=== PATIENT | female | born 1980 | race Caucasian/White ===

== ENCOUNTER 2017-07-06 15:28 | Emergency (ER) | payer OTHER ==
[~2017-07-06] VITALS: Ht 154.9 cm; Wt 46.7 kg
[~2017-07-06 15:28] MED LIST: MULT1TAB10 PO; VITA100T60 PO
[2017-07-06 16:30] VITALS: BP 142/89
--- NOTE | 2017-07-08 05:43 | ECGEPIP ---
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
== END 2017-07-06 17:22 | disposition left against medical advice (07) ==
LOC: M ED 15:28 → EDBD 15:28 → M ED 17:22
DX: R55 Syncope and collapse (principal); Z53.20 Procedure and treatment not carried out because of patient's decision for unspecified reasons

== ENCOUNTER → 2017-10-03 | Outpatient (REF) | payer OTHER ==
[~2017-10-03] MED LIST changes: +BUSP5TA PO; +VENL75CA2 PO
[2017-10-03 12:32] LABS: MEAN CORPUSCULAR HEMOGLOBIN 33.1 pg (27.0-33.0); MEAN CORPUSCULAR HGB CONC 33.9 g/dl (32.0-36.5); MEAN CORPUSCULAR VOLUME 97.7 fl (80.0-96.0); PLATELET COUNT, AUTOMATED 330 10^3/uL (150-450); RED CELL DISTRIBUTION WIDTH 12.8 % (11.5-14.5); WHITE BLOOD COUNT 7.8 10^3/uL (4.0-10.0)
[2017-10-03 12:55] LABS: ALBUMIN 4.1 GM/DL (3.2-5.2); ALBUMIN/GLOBULIN RATIO 1.11 (1.00-1.93); ALKALINE PHOSPHATASE 51 U/L (45-117); ALT/SGPT 16 U/L (12-78); ANION GAP 6 MEQ/L (8-16); AST/SGOT 15 U/L (7-37); BILIRUBIN,TOTAL 0.6 MG/DL (0.2-1.0); BLOOD UREA NITROGEN 8 MG/DL (7-18); CALCIUM LEVEL 9.6 MG/DL (8.5-10.1); CARBON DIOXIDE LEVEL 28 MEQ/L (21-32); CHLORIDE LEVEL 109 MEQ/L (98-107); CREATININE FOR GFR 0.92 MG/DL (0.55-1.02); FREE T4 0.88 NG/DL (0.76-1.46); GLOMERULAR FILTRATION RATE > 60.0 (>60); GLUCOSE, FASTING 105 MG/DL (70-105); SODIUM LEVEL 143 MEQ/L (136-145); TOTAL PROTEIN 7.8 GM/DL (6.4-8.2)
[2017-10-03 13:01] LABS: POTASSIUM SERUM 5.5 MEQ/L (3.5-5.1)
== END ==
LOC: M SFHCADAM 10:17
PROVIDERS: ATTEND Physician Assistant
DX: M94.0 Chondrocostal junction syndrome [Tietze] (principal); R07.89 Other chest pain; F41.9 Anxiety disorder, unspecified

== ENCOUNTER → 2017-10-04 | Outpatient (REF) | payer OTHER | LOC: M SFHCADAM 09:31 | PROVIDERS: ATTEND Physician Assistant | DX: E87.5 Hyperkalemia (principal) ==

== ENCOUNTER 2017-10-08 06:26 | Observation (INO) | payer OTHER ==
[~2017-10-08] VITALS: Ht 154.9 cm; Wt 47.0 kg
[~2017-10-08 06:26] MED LIST changes: -BUSP5TA PO; -VENL75CA2 PO
[2017-10-08] MEDS ORDERED: VENL75CA2 PO (06:43)
[2017-10-08] MEDS ORDERED: BUSP5TA PO (06:43)
[2017-10-08] MEDS ORDERED: NS 1,000 ML IV ONE (07:00)
[2017-10-08] MEDS ORDERED: NALOXONE INJ 2 MG/2 ML SYRINGE (J2310) IV ONE (07:00)
[2017-10-08 07:03] LABS: BASO # 0.1 10^3/uL (0.0-0.2); BASO % 0.5 % (0.0-1.0); EOS # 0.6 10^3/uL (0.0-0.50); EOS % 6.7 % (0.0-3.0); IMMATURE GRANULOCYTE % 0.2 % (0-0); LYMPH # 3.9 10^3/uL (1.5-4.5); LYMPH % 42.3 % (24.0-44.0); MEAN CORPUSCULAR HEMOGLOBIN 32.7 pg (27.0-33.0); MEAN CORPUSCULAR HGB CONC 33.2 g/dl (32.0-36.5); MEAN CORPUSCULAR VOLUME 98.5 fl (80.0-96.0); MONO # 0.7 10^3/uL (0.0-0.8); MONO % 7.9 % (0.0-5.0); NEUTROPHILS # 3.9 10^3/uL (1.8-7.7); NEUTROPHILS % 42.4 % (36.0-66.0); PLATELET COUNT, AUTOMATED 236 10^3/uL (150-450); RED CELL DISTRIBUTION WIDTH 12.4 % (11.5-14.5); WHITE BLOOD COUNT 9.3 10^3/uL (4.0-10.0)
[2017-10-08 07:14] LABS: ALBUMIN 3.5 GM/DL (3.2-5.2); ALBUMIN/GLOBULIN RATIO 1.09 (1.00-1.93); ALKALINE PHOSPHATASE 45 U/L (45-117); ALT/SGPT 19 U/L (12-78); ANION GAP 7 MEQ/L (8-16); AST/SGOT 20 U/L (7-37); BILIRUBIN,DIRECT < 0.1 MG/DL (0.0-0.2); BILIRUBIN,TOTAL 0.2 MG/DL (0.2-1.0); BLOOD UREA NITROGEN 15 MG/DL (7-18); CALCIUM LEVEL 8.6 MG/DL (8.5-10.1); CARBON DIOXIDE LEVEL 28 MEQ/L (21-32); CHLORIDE LEVEL 108 MEQ/L (98-107); CREATININE FOR GFR 1.07 MG/DL (0.55-1.02); GLOMERULAR FILTRATION RATE > 60.0 (>60); GLUCOSE, FASTING 49 MG/DL (70-105); POTASSIUM SERUM 4.7 MEQ/L (3.5-5.1); SODIUM LEVEL 143 MEQ/L (136-145); TOTAL PROTEIN 6.7 GM/DL (6.4-8.2)
[2017-10-08] MEDS ORDERED: DEXTROSE 50% 50 ML VIAL IV ONE (08:00)
[2017-10-08] MEDS ORDERED: ACETAMINOPHEN TAB 650MG DOSE (2X325MG) PO PRN (09:15)
[2017-10-08] MEDS ORDERED: BISACODYL 5 MG TAB PO PRN (09:15)
[2017-10-08] MEDS ORDERED: LORazepam 2 MG TAB PO PRN (09:15)
[2017-10-08] MEDS ORDERED: ONDANSETRON 4MG/2ML VIAL (J2405) IV PRN (09:15)
--- NOTE | 2017-10-08 09:26 | HPEPDOC ---
[facility] Medical History & Physical History and Physical CHIEF COMPLAINT: [brought in for AMS] HISTORY OF PRESENT ILLNESS: [patient is lethargic and cannot provide a history, history obtained from ED physician and EMR, patient brought in last night she was found lethargic and altered by family with presumed drug overdose, she is on Buspar and venlefaxine at home and possibly percocet ] patient was admitted last year for intentional overdose of Wellbutrin, this time she denies it was intentional. PAST MEDICAL HISTORY: UTO PAST SURGICAL HISTORY: UTO SOCIAL HISTORY: UTO FAMILY HISTORY: UTO ALLERGIES: Please see below. REVIEW OF SYSTEMS: UTO HOME MEDICATIONS: Please see below. PHYSICAL EXAMINATION: VITAL SIGNS: See below GENERAL APPEARANCE: [lethargic easily arousable answers some questions]. HEENT: [AT/NC, dry mucus membranes]. CARDIOVASCULAR: [s1 s2]. LUNGS: [CTA]. ABDOMEN: [s,nt,nd]. MUSCULOSKELETAL: [OROZCO equally]. EXTREMITIES: [no edema]. NEUROLOGICAL: [no focal deficits, PERRL]. PSYCHIATRIC: [uto]. LABORATORY DATA: See below. IMAGING: [none] MICROBIOLOGY: Please see below. 37 yo F patient brought in last night she was found lethargic and altered by family with presumed drug overdose, she is on Buspar and venlefaxine at home and possibly percocet ] patient was admitted last year for intentional overdose of Wellbutrin, this time she denies it was intentional. ED called and spoke to poison control which recommended 12 hour observation will admit to PCU for tele/pulse ox monitoring, will start IVF 150cc/hr, obtain urine/serum drug screen, seizure and fall precautions, psych evaluation once she is more awake. Vital Signs Vital Signs Date Time Temp Pulse Resp B/P (MAP) Pulse Ox O2 Delivery O2 Flow Rate FiO2 10/08/17 08:33 69 92/59 (70) 98 10/08/17 08:18 19 10/08/17 07:48 98.1 10/08/17 06:26 Room Air Laboratory Data Labs 24H Laboratory Tests 2 10/08/17 06:38: Immature Granulocyte % (Auto) 0.2H, White Blood Count 9.3, Red Blood Count 4.07 , Hemoglobin 13.3, Hematocrit 40.1, Mean Corpuscular Volume 98.5H, Mean Corpuscular Hemoglobin 32.7, Mean Corpuscular Hemoglobin Concent 33.2, Red Cell Distribution Width 12.4, Platelet Count 236, Neutrophils (%) (Auto) 42.4, Lymphocytes (%) (Auto) 42.3, Monocytes (%) (Auto) 7.9H, Eosinophils (%) (Auto) 6.7H, Basophils (%) (Auto) 0.5, Neutrophils # (Auto) 3.9, Lymphocytes # (Auto) 3.9, Monocytes # (Auto) 0.7, Eosinophils # (Auto) 0.6H, Basophils # (Auto) 0.1, Immature Granulocyte # (Auto) 0.0, Nucleated Red Blood Cells % (auto) 0.0, Anion Gap 7L, Glomerular Filtration Rate > 60.0, Calcium Level 8.6, Aspartate Amino Transf (AST/SGOT) 20, Alanine Aminotransferase (ALT/SGPT) 19, Alkaline Phosphatase 45, Total Bilirubin 0.2, Direct Bilirubin < 0.1, Total Creatine Kinase 88, Total Protein 6.7, Albumin 3.5, Albumin/Globulin Ratio 1.09, Thyroid Stimulating Hormone (TSH) 0.895, Salicylates Level 4.0L, Acetaminophen Level < 2.0L, Ethyl Alcohol Level 0.003 10/08/17 07:50: Bedside Glucose (Misc Panel) 72 10/08/17 08:16: Bedside Glucose (Misc Panel) 109H CBC/BMP Laboratory Tests 10/08/17 06:38 Red Blood Count 4.07, Mean Corpuscular Volume 98.5 H, Mean Corpuscular Hemoglobin 32.7, Mean Corpuscular Hemoglobin Concent 33.2, Red Cell Distribution Width 12.4, Neutrophils (%) (Auto) 42.4, Lymphocytes (%) (Auto) 42.3, Monocytes (%) (Auto) 7.9 H, Eosinophils (%) (Auto) 6.7 H, Basophils (%) ( Auto) 0.5, Neutrophils # (Auto) 3.9, Lymphocytes # (Auto) 3.9, Monocytes # (Auto ) 0.7, Eosinophils # (Auto) 0.6 H, Basophils # (Auto) 0.1 Home Medications Scheduled Buspirone HCl (Buspirone HCl) 5 Mg Tab, 5 MG PO BID Venlafaxine HCl (Venlafaxine HCl ER) 75 Mg Cap, 75 MG PO DAILY Allergies Coded Allergies: No Known Drug Allergy (Verified Allergy, Unknown, 01/13/13) LLUVIA TAYLOR MD Oct 08, 2017 09:26
[2017-10-08 10:13] LABS: CONTROL LINE HCG INT CTR LINE PRESENT
[2017-10-08] MEDS ORDERED: PANTOPRAZOLE 40MG INJ (PROTONIX) (C9113) IV SCH (11:00)
[2017-10-08 11:10] VITALS: BP_SYST 107; BP_SYST 96; BP_DIAS 55; BP_DIAS 62
[2017-10-08 11:23] LABS: METHADONE URINE NEGATIVE (NEGATIVE)
[2017-10-08] MEDS: FOLIC ACID 1 MG TAB PO SCH (12:06)
[2017-10-08] MEDS: MULTIVITAMINS/MINERALS THERAP 1 TAB PO SCH (12:07)
[2017-10-08] MEDS: NS 1,000 ML IV SCH ×3 (12:07→21:20)
[2017-10-08] MEDS: THIAMINE 100 MG TAB PO SCH ×2 (12:07→21:20)
[2017-10-08] MEDS: ENOXAPARIN 30 MG/0.3 ML SYR (J1650) SC SCH (12:35)
[2017-10-08 16:00] VITALS: BP 141/90
[2017-10-08 19:51] VITALS: BP 104/71
[2017-10-08 20:00] VITALS: BP 104/71
[2017-10-08 23:59] VITALS: BP 132/84
[2017-10-09] VITALS: BP 104/71
[2017-10-09] MEDS: NS 1,000 ML IV SCH ×2 (03:54→10:45)
[2017-10-09 04:00] VITALS: BP 106/65
[2017-10-09 05:15] LABS: MEAN CORPUSCULAR HEMOGLOBIN 32.3 pg (27.0-33.0); MEAN CORPUSCULAR HGB CONC 33.1 g/dl (32.0-36.5); MEAN CORPUSCULAR VOLUME 97.6 fl (80.0-96.0); PLATELET COUNT, AUTOMATED 198 10^3/uL (150-450); RED CELL DISTRIBUTION WIDTH 12.5 % (11.5-14.5); WHITE BLOOD COUNT 7.5 10^3/uL (4.0-10.0)
[2017-10-09 05:35] LABS: ALBUMIN 2.8 GM/DL (3.2-5.2); ALBUMIN/GLOBULIN RATIO 1.04 (1.00-1.93); ALKALINE PHOSPHATASE 33 U/L (45-117); ALT/SGPT 17 U/L (12-78); ANION GAP 6 MEQ/L (8-16); AST/SGOT 17 U/L (7-37); BILIRUBIN,TOTAL 0.4 MG/DL (0.2-1.0); BLOOD UREA NITROGEN 5 MG/DL (7-18); CALCIUM LEVEL 7.5 MG/DL (8.5-10.1); CARBON DIOXIDE LEVEL 23 MEQ/L (21-32); CHLORIDE LEVEL 115 MEQ/L (98-107); CREATININE FOR GFR 0.62 MG/DL (0.55-1.02); GLOMERULAR FILTRATION RATE > 60.0 (>60); GLUCOSE, FASTING 50 MG/DL (70-105); POTASSIUM SERUM 3.6 MEQ/L (3.5-5.1); SODIUM LEVEL 144 MEQ/L (136-145); TOTAL PROTEIN 5.5 GM/DL (6.4-8.2)
[2017-10-09 08:00] VITALS: BP 101/63; O2SAT 97
[2017-10-09] MEDS: THIAMINE 100 MG TAB PO SCH (08:50)
[2017-10-09] MEDS: FOLIC ACID 1 MG TAB PO SCH (08:50)
[2017-10-09] MEDS: MULTIVITAMINS/MINERALS THERAP 1 TAB PO SCH (08:50)
--- NOTE | 2017-10-09 09:55 | ECGEPIP ---
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
[2017-10-09] MEDS: ENOXAPARIN 30 MG/0.3 ML SYR (J1650) SC SCH (11:37)
[2017-10-09 11:49] LABS: CONTROL LINE HCG INT CTR LINE PRESENT
[2017-10-09 12:00] VITALS: BP 114/79; O2SAT 94
[2017-10-09] MEDS ORDERED: ACETAMINOPHEN 500 MG TAB PO PRN (15:45)
[2017-10-09] MEDS ORDERED: BENZOCAINE 10% 9GM TUBE (ANBESOL) TOP PRN (15:45)
--- NOTE | 2017-10-09 15:53 | IPN ---
DATE: 10/09/2017 Juany is seen in progressive care unit (PCU). She is admitted with a presumed drug overdose. Her story keeps changing. Most recently, apparently, she said that someone gave her "a triple dose of her medications." Apparently, her boyfriend's mother takes care of her medications. Her toxicology screen on admission was positive for barbiturates, these are not prescribed. Looking back through her records, on 03/19/2016, she had non-prescribed barbiturates, as well as cocaine, in her toxicology screen. Today, she says that she broke off part of a tooth biting into a peanut M and M. PHYSICAL EXAMINATION: Blood pressure 114/79, pulse 74, respiratory rate 18, 99% oxygen saturation. GENERAL APPEARANCE: She is lying on her side in a position, holding an ice bag to the right side of her face. She did not seem in much distress when I examined her. HEENT EXAM: Shows that there might be a broken tooth, right upper. I am not a dentist and I do not know what her baseline dental exam is like. Cannot rule out a chipped tooth. LUNGS: Clear. HEART: Regular rate, rhythm. ABDOMEN: Soft, nontender, nausea, nonfocal. IMPRESSION: 1. Possible drug overdose. Waiting for psychiatry to see her. If felt to be intentional overdose, then anticipate inpatient mental health unit admission. Otherwise, she will need outpatient psychiatry followup. She has seen Dr. Hernandez in the past. 2. Unresponsive episode. Apparently, she keeps having episodes where she is brought in with altered mental status. I presume it is from the illicit drug use. I did notice she had an EEG done by neurology last year and it was normal, so I am not repeating that. Her telemetry has been unremarkable for cardiac arrhythmias. I think her altered mental status is either intoxication or psychiatric. 3. 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 Would avoid opiates and prescribed benzodiazepines in this patient.
[2017-10-09 16:00] VITALS: BP 104/64
--- NOTE | 2017-10-09 17:23 | MHIPNPDOC ---
[facility] Progress Note Progress Note DATE OF SERVICE: 10/09/17 HISTORY: Evaluated 37 year old female who was brought in for being unresponsive. she has had previous episodes, although she keeps denying recent illicit drug abuse. She also denies alcohol abuse BUT HER BOYFRIEND OF 20 YEARS , says she has been using way too many medications and on [place] Анна, she took "a bunch' of Klonopin, Gabapentin and Amitriptyline. She has denied this, as well as she has denied previous suicide attempts and he says he has witnessed those attempts. Once he witnessed when she ingested almost a bottle of Sudafed. He says "if shhe's gonna hate me for saying the truth, so be it but I want her to get some help, I can't have her like that near my children" She says she was at her mother in law's house when she became very sleepy but she was not unresponsive. She denies using more medications than usual, she says " I don't know why I pass out". She admits having an open CPS case and she fears that staying at [facility] os going to hurt her more. SHE BECAME VERY AGITATED WHN HER BOYFRIEND WALKED IN AND SAID HE THOUGHT SHE NEEDED HELP, HE THOUGHT SHE WAS BIPOLAR. SHE GOT UP FROM BED, WALKED TOWARDS THE BATHROOM, YELLED AT THER BOYFRIEND, STARTED CRYING AND LOCKED HERSELF IN THE BATHROOM. I believe the patient is very unstable, she is irritable/anxious/depressed. she' s labile. her insight and judgment are poor. She apparently has been using more of her medications and possibly some illegal medications. Patient needs to go to [facility], she needs to be admitted. DIAGNOSIS: UNSPECIFIED MOOD DISORDER. MANAGEMENT PLAN: Admit to [facility] TIME SPENT: 45 minutes. Vital Signs Vital Signs Date Time Temp Pulse Resp B/P (MAP) Pulse Ox O2 Delivery O2 Flow Rate FiO2 10/09/17 16:00 99.0 69 18 104/64 (77) 100 Room Air Laboratory Data 24H Labs Laboratory Tests 2 10/09/17 04:52: Nucleated Red Blood Cells % (auto) 0.0, Anion Gap 6L, Glomerular Filtration Rate > 60.0, Blood Urea Nitrogen 5#L, Creatinine 0.62, Sodium Level 144, Potassium Level 3.6#, Chloride Level 115H, Carbon Dioxide Level 23, Calcium Level 7.5L, Aspartate Amino Transf (AST/SGOT) 17, Alanine Aminotransferase (ALT/ SGPT) 17, Alkaline Phosphatase 33L, Total Bilirubin 0.4#, Total Protein 5.5L, Albumin 2.8L, Albumin/Globulin Ratio 1.04, Human Chorionic Gonadotropin, Qual NEGATIVE 10/09/17 10:00: Bedside Glucose (Misc Panel) 161H CBC/BMP Laboratory Tests 10/09/17 04:52 Red Blood Count 3.72 L, Mean Corpuscular Volume 97.6 H, Mean Corpuscular Hemoglobin 32.3, Mean Corpuscular Hemoglobin Concent 33.1, Red Cell Distribution Width 12.5, Calcium Level 7.5 L, Aspartate Amino Transf (AST/SGOT) 17, Alanine Aminotransferase (ALT/SGPT) 17, Alkaline Phosphatase 33 L, Total Bilirubin 0.4 #, Total Protein 5.5 L, Albumin 2.8 L Current Medications Current Medications Acetaminophen (Tylenol Tab) 650 mg Q4HP PRN PO MILD PAIN OR FEVER Last administered on 10/09/17 13:11; Start 10/08/17 at 09:15; Stop 10/09/17 at 15 :43; Status DC Acetaminophen (Tylenol Tab) 1,000 mg Q6HP PRN PO PAIN / FEVER; Start 10/09/17 at 15:45; Stop 11/08/17 at 15:44 Benzocaine (Anbesol Gel) TO AFFECTED TOOTH Q2HP PRN TOP PAIN; Start 10/09/17 at 15:45; Stop 11/08/17 at 15:44 Bisacodyl (Dulcolax Tab) 5 mg DAILYPRN PRN PO CONSTIPATION; Start 10/08/17 at 09:15; Stop 11/07/17 at 09:14 Enoxaparin Sodium (Lovenox) 30 mg DAILY@1300 SC Last administered on 12:35; Start 10/08/17 at 13:00; Stop 10/13/17 at 12:59 Folic Acid (Folic Acid) 1 mg DAILY PO Last administered on 10/09/17 08:50; Start 10/08/17 at 09:00; Stop 11/07/17 at 08:59 Home Med (Med Rec Complete!) ASDIRECTED XX ; Start 10/08/17 at 09:15; Stop at 09:25; Status DC Lorazepam (Ativan) 2 mg ASDIRECTED PRN PO SEE PROTOCOL; Start 10/08/17 at 09: 15; Stop 10/09/17 at 11:34; Status DC Multivitamins (Theragram-M) 1 tab DAILY PO Last administered on 10/09/17 08: 50; Start 10/08/17 at 09:00; Stop 11/07/17 at 08:59 Ondansetron HCl (ZOFRAN INJection) 4 mg Q6HP PRN IV NAUSEA OR VOMITING; Start 10/08/17 at 09:15; Stop 10/09/17 at 11:34; Status DC Pantoprazole Sodium (Protonix) 40 mg Q24H IV Last administered on 10/08/17 12 :35; Start 10/08/17 at 11:00; Stop 10/09/17 at 11:34; Status DC Sodium Chloride 1,000 ml @ 150 mls/hr Q6H40M IV Last administered on 10:45; Start 10/08/17 at 09:05; Stop 10/09/17 at 11:34; Status DC Thiamine HCl (Thiamine HCl) 100 mg BID PO Last administered on 10/09/17 08:50 ; Start 10/08/17 at 09:00; Stop 10/10/17 at 21:01 Allergies Coded Allergies: No Known Drug Allergy (Verified Allergy, Unknown, 01/13/13) STEVE RACHEL MD Oct 09, 2017 17:23
--- NOTE | 2017-10-09 21:50 | IPN ---
DATE: 10/09/2017 Juany feels well today and has no complaints. She denies any chest pain. She states she did have some palpitations earlier and apparently told the nurse but has no other complaints. We discussed what happened prior to her coming to the hospital yesterday. I saw her in the office on 10/04/2017 in followup for her anxiety and depression. At that point, she had been taking a low dose of Effexor 37.5 mg daily with BuSpar 5 mg twice a day. She stated that her anxiety had much improved and that her palpitations were less frequent. They are very rare and fleeting and that her mood was good on the Effexor and BuSpar. However, she thought a higher dose of the Effexor might be beneficial; we increased her to 75 mg daily, and she was given information for the [facility] walk-in clinic to initiate some counseling due to significant life stressors. She states that she started the higher dose of venlafaxine 75 mg daily on 10/04/2017, but also reports that she was staying with Armen's mother (I believe Armen is the father of her children) who was administering Juany's medications for her so that there would be no concern or confusion about what she was taking. However, on 10/05/2017, she was given her medications and later Armen's mother told her that she had accidentally given her two of the venlafaxine tablets. The next night, she states she had one 75 mg venlafaxine as prescribed and because she had trouble sleeping, Armen's mother gave her an amitriptyline as well, which she is not prescribed to Juany. On 10/07/2017, she supposedly took her usual medications as prescribed and 10/08/2017 was found unresponsive. She denies taking any other medications on purpose. She denied being suicidal; however, her toxicology screen on 10/08/2017 was positive for barbiturates. She is not sure if Armen's mother accidentally gave her the wrong medication or why she would have barbiturates on her toxicology screen, but she denies taking any other medications or intentionally overdosing. Of note, she was seen in the emergency room back in June for "drug overdose," according to the emergency room records. However, during that admission, she had come in after a witnessed unresponsive spell and somehow came and left the emergency room after drug overdose without ever having had any blood work done, EKGs or urine drug screen. Somehow, she was able to come and go without any workup for this drug overdose. She tells me that she had not overdosed but that she had had an unresponsive spell; she does not know what happened, her daughter found her and they took her to the emergency room. She has no explanation for why this occurred. She tells me that this is the third unresponsive episode she has had in the last 6 months, and again, per some discussions in the office, she has had periodic episodes of palpitations. Her past medical history is significant for anxiety, depression. She has been admitted in March of 2016 for concerns of a seizure after taking someone else's Wellbutrin. She was evaluated by psychiatry at the time but did not feel that she needed inpatient mental health. She has been followed by the addictions program for cocaine and alcohol abuse in the past and is following with [facility] and tells me she has had no alcohol for over a year and has not used any illicit drugs. Today, her vital signs show blood pressure 100/63, pulse 66, respirations 20, temperature 98.4, oxygen saturation 96% on room air. Generally, she is bright, alert, anxious, somewhat fidgety, fairly good eye contact Cardiac: Regular rate and rhythm. Lungs: Clear to auscultation bilaterally. Abdomen: Soft, nontender. Extremities: There is no edema. LABORATORY: White count 7.5, hemoglobin 12, platelets 198,000. Sodium 144, potassium 3.6, BUN 5, creatinine 0.6, glucose 50, albumin is 2.8. ASSESSMENT AND PLAN: Unresponsive episode, possibly from overdose of medication including a barbiturate; however, the patient states she did not intentionally overdose and is not certain of what may have been the medication she was taking or whether or not the person she is staying with administered her the wrong medication, but she denies suicidal ideation or intentional overdose. I will have psychiatry see her due to the complex history and also to help us sort out what medicines she should be on going forward. In the meantime, she will be monitored on telemetry as this may have been a syncopal episode or possibly a seizure. Consider electroencephalogram (EEG), neurological evaluation or possibly further cardiac workup. Will discuss this with the attending. Will continue her sitter for safety for now.
== END 2017-10-09 20:26 ==
LOC: M ED 06:26 → M ED INP 09:05 → M PCU 11:10
PROVIDERS: ADMIT Internal Medicine; ATTEND Family Medicine
DX: R41.82 Altered mental status, unspecified (principal); F39 Unspecified mood [affective] disorder; Z79.899 Other long term (current) drug therapy
CPT/HCPCS: 36415; 80048; 80053; 80076; 80307; 80320; 80329; 82550; 84443; 84703; 85025; 85027; 93005; 93041; 94760; 96374; 96375; 99285; C9113; J1650; J2310

== ENCOUNTER 2017-10-09 20:30 | Inpatient (IN) | payer OTHER ==
[2017-10-09] MEDS: NICOTINE 21MG/24HR 1 EA TRANSDERMAL TD (09:00)
[~2017-10-09 20:30] MED LIST changes: +MAALOX 30 ML SUSP *UDC PO; +MOM 30ML SUSPENSION UDC PO; -MULT1TAB10 PO; -VITA100T60 PO
[2017-10-09] MEDS: busPIRone 5 MG TAB PO (22:04)
[2017-10-09] MEDS: traZODone 50 MG TAB PO (22:05)
[2017-10-10] MEDS: VENLAFAXINE **XR** 37.5 MG CAPSULE PO (09:14)
[2017-10-10] MEDS: NICOTINE 21MG/24HR 1 EA TRANSDERMAL TD (09:14)
[2017-10-10] MEDS: THIAMINE 100 MG TAB PO ×2 (09:14→20:41)
[2017-10-10] MEDS: MULTIVITAMINS/MINERALS THERAP 1 TAB PO (09:14)
[2017-10-10] MEDS: busPIRone 5 MG TAB PO ×2 (09:14→20:41)
[2017-10-10] MEDS: FOLIC ACID 1 MG TAB PO (09:14)
[2017-10-10] MEDS: INFLUENZA QUADRIVALENT PF VACCINE 0.5ML SYRINGE (90686) IM (09:16)
[2017-10-10] MEDS ORDERED: LORazepam 2 MG TAB PO (11:30)
[2017-10-10] MEDS: QUEtiapine FUMARATE 50 MG TAB PO (20:41)
[2017-10-10] MEDS: traZODone 50 MG TAB PO (22:02)
[2017-10-11] MEDS: THIAMINE 100 MG TAB PO ×2 (08:44→20:54)
[2017-10-11] MEDS: MULTIVITAMINS/MINERALS THERAP 1 TAB PO (08:44)
[2017-10-11] MEDS: busPIRone 5 MG TAB PO ×2 (08:44→20:54)
[2017-10-11] MEDS: NICOTINE 21MG/24HR 1 EA TRANSDERMAL TD (08:44)
[2017-10-11] MEDS: VENLAFAXINE **XR** 37.5 MG CAPSULE PO (08:44)
[2017-10-11] MEDS: FOLIC ACID 1 MG TAB PO (08:44)
[2017-10-11] MEDS ORDERED: MULTIVITAMINS/MINERALS THERAP 1 TAB PO (09:00)
[2017-10-11] MEDS ORDERED: FOLIC ACID 1 MG TAB PO (09:00)
[2017-10-11] MEDS: traZODone 50 MG TAB PO (20:54)
[2017-10-11] MEDS: QUEtiapine FUMARATE 100 MG TAB PO (20:54)
[2017-10-12] MEDS: MULTIVITAMINS/MINERALS THERAP 1 TAB PO (08:29)
[2017-10-12] MEDS: NICOTINE 21MG/24HR 1 EA TRANSDERMAL TD (08:29)
[2017-10-12] MEDS: busPIRone 5 MG TAB PO ×2 (08:29→20:50)
[2017-10-12] MEDS: THIAMINE 100 MG TAB PO (08:29)
[2017-10-12] MEDS: VENLAFAXINE **XR** 37.5 MG CAPSULE PO (08:29)
[2017-10-12] MEDS: FOLIC ACID 1 MG TAB PO (08:29)
[2017-10-12] MEDS: ACETAMINOPHEN TAB 650MG DOSE (2X325MG) PO ×2 (10:26→16:25)
[2017-10-12] MEDS: traZODone 50 MG TAB PO (20:50)
[2017-10-12] MEDS: QUEtiapine FUMARATE 50 MG TAB PO (20:50)
[2017-10-13] MEDS: NICOTINE 21MG/24HR 1 EA TRANSDERMAL TD (09:00)
[2017-10-13] MEDS: busPIRone 5 MG TAB PO ×2 (09:00→20:54)
[2017-10-13] MEDS: VENLAFAXINE **XR** 37.5 MG CAPSULE PO (09:00)
[2017-10-13] MEDS: FOLIC ACID 1 MG TAB PO (09:00)
[2017-10-13] MEDS: MULTIVITAMINS/MINERALS THERAP 1 TAB PO (09:00)
[2017-10-13] MEDS: ACETAMINOPHEN TAB 650MG DOSE (2X325MG) PO (15:30)
[2017-10-13] MEDS: traZODone 50 MG TAB PO (20:54)
[2017-10-13] MEDS: QUEtiapine FUMARATE 200 MG TAB PO (20:54)
[2017-10-14] MEDS: FOLIC ACID 1 MG TAB PO (08:32)
[2017-10-14] MEDS: NICOTINE 21MG/24HR 1 EA TRANSDERMAL TD (08:32)
[2017-10-14] MEDS: MULTIVITAMINS/MINERALS THERAP 1 TAB PO (08:32)
[2017-10-14] MEDS: busPIRone 5 MG TAB PO ×2 (08:32→20:36)
[2017-10-14] MEDS: traZODone 50 MG TAB PO (20:36)
[2017-10-14] MEDS: QUEtiapine FUMARATE 200 MG TAB PO (20:36)
[2017-10-15] MEDS: FOLIC ACID 1 MG TAB PO (09:02)
[2017-10-15] MEDS: busPIRone 5 MG TAB PO ×2 (09:02→21:24)
[2017-10-15] MEDS: MULTIVITAMINS/MINERALS THERAP 1 TAB PO (09:02)
[2017-10-15] MEDS: NICOTINE 21MG/24HR 1 EA TRANSDERMAL TD (09:03)
[2017-10-15] MEDS: ACETAMINOPHEN TAB 650MG DOSE (2X325MG) PO ×2 (10:04→17:53)
[2017-10-15] MEDS: VENLAFAXINE **XR** 75MG CAPSULE PO (16:22)
[2017-10-15] MEDS: QUEtiapine FUMARATE 100 MG TAB PO (21:24)
[2017-10-15] MEDS: traZODone 50 MG TAB PO (21:24)
[2017-10-16] MEDS: VENLAFAXINE **XR** 75MG CAPSULE PO (08:58)
[2017-10-16] MEDS: MULTIVITAMINS/MINERALS THERAP 1 TAB PO (08:58)
[2017-10-16] MEDS: busPIRone 5 MG TAB PO ×2 (08:58→20:52)
[2017-10-16] MEDS: NICOTINE 21MG/24HR 1 EA TRANSDERMAL TD (08:58)
[2017-10-16] MEDS: FOLIC ACID 1 MG TAB PO (08:58)
[2017-10-16] MEDS: IBUPROFEN 600 MG TAB PO (13:42)
[2017-10-16] MEDS: QUEtiapine FUMARATE 100 MG TAB PO (20:52)
[2017-10-16] MEDS: traZODone 50 MG TAB PO (20:52)
[2017-10-17] MEDS: NICOTINE 21MG/24HR 1 EA TRANSDERMAL TD (09:17)
[2017-10-17] MEDS: busPIRone 5 MG TAB PO ×2 (09:18→21:04)
[2017-10-17] MEDS: MULTIVITAMINS/MINERALS THERAP 1 TAB PO (09:18)
[2017-10-17] MEDS: VENLAFAXINE **XR** 75MG CAPSULE PO (09:18)
[2017-10-17] MEDS: FOLIC ACID 1 MG TAB PO (09:18)
[2017-10-17] MEDS: traZODone 50 MG TAB PO (21:04)
[2017-10-17] MEDS: QUEtiapine FUMARATE 100 MG TAB PO (21:04)
[2017-10-18] MEDS: FOLIC ACID 1 MG TAB PO (09:15)
[2017-10-18] MEDS: NICOTINE 21MG/24HR 1 EA TRANSDERMAL TD (09:15)
[2017-10-18] MEDS: busPIRone 5 MG TAB PO (09:15)
[2017-10-18] MEDS: MULTIVITAMINS/MINERALS THERAP 1 TAB PO (09:15)
[2017-10-18] MEDS: VENLAFAXINE **XR** 75MG CAPSULE PO (09:15)
== END 2017-10-18 13:30 | disposition home or self-care (01) | DRG 753 ==
LOC: M PSY 20:30
DX: F31.60 Bipolar disorder, current episode mixed, unspecified (principal); F41.9 Anxiety disorder, unspecified; F10.10 Alcohol abuse, uncomplicated; F14.90 Cocaine use, unspecified, uncomplicated; F12.90 Cannabis use, unspecified, uncomplicated; Z79.899 Other long term (current) drug therapy; F17.200 Nicotine dependence, unspecified, uncomplicated

== ENCOUNTER 2017-11-01 20:59 | Emergency (ER) | payer OTHER ==
[2017-11-01] MEDS: KETOROLAC 30 MG/ML VIAL (J1885) IM (21:50)
[2017-11-01] MEDS: PERCOCET 5MG/325MG TAB PO (21:53)
== END 2017-11-01 22:35 | disposition home or self-care (01) ==
LOC: M ED 20:59
DX: S02.5XXA Fracture of tooth (traumatic), initial encounter for closed fracture (principal); K08.89 Other specified disorders of teeth and supporting structures; X58.XXXA Exposure to other specified factors, initial encounter; Y92.9 Unspecified place or not applicable; Y93.9 Activity, unspecified; K21.9 Gastro-esophageal reflux disease without esophagitis; F41.9 Anxiety disorder, unspecified; F32.9 Major depressive disorder, single episode, unspecified; R56.9 Unspecified convulsions; F19.10 Other psychoactive substance abuse, uncomplicated; F17.200 Nicotine dependence, unspecified, uncomplicated; Z79.899 Other long term (current) drug therapy
CPT/HCPCS: J1885

== ENCOUNTER 2017-11-24 12:05 | Emergency (ER) | payer OTHER | END 2017-11-24 13:07 | disposition home or self-care (01) | LOC: M ED 12:05 | DX: K08.89 Other specified disorders of teeth and supporting structures (principal); Z79.899 Other long term (current) drug therapy; Z88.6 Allergy status to analgesic agent; Z88.1 Allergy status to other antibiotic agents; Z88.5 Allergy status to narcotic agent | CPT/HCPCS: 99282 ==

== ENCOUNTER 2017-11-25 12:38 | Emergency (ER) | payer OTHER ==
[2017-11-25 14:22] LABS: BASO # 0.1 10^3/uL (0.0-0.2); BASO % 0.5 % (0.0-1.0); EOS # 0.1 10^3/uL (0.0-0.50); EOS % 1.1 % (0.0-3.0); HEMATOCRIT 41.2 % (36.0-47.0); HEMOGLOBIN 13.9 g/dl (12.0-16.0); IMMATURE GRANULOCYTE % 0.4 % (0-3.0); LYMPH # 2.9 10^3/uL (1.5-4.5); LYMPH % 22.8 % (24.0-44.0); MEAN CORPUSCULAR HEMOGLOBIN 32.3 pg (27.0-33.0); MEAN CORPUSCULAR HGB CONC 33.7 g/dl (32.0-36.5); MEAN CORPUSCULAR VOLUME 95.8 fl (80.0-96.0); MONO # 0.8 10^3/uL (0.0-0.8); MONO % 6.6 % (0.0-5.0); NEUTROPHILS # 8.6 10^3/uL (1.8-7.7); NEUTROPHILS % 68.6 % (36.0-66.0); PLATELET COUNT, AUTOMATED 315 10^3/uL (150-450); RED CELL DISTRIBUTION WIDTH 12.6 % (11.5-14.5); WHITE BLOOD COUNT 12.5 10^3/uL (4.0-10.0)
[2017-11-25] MEDS: CLINDAMYCIN 300 MG in APPROPRIATE DILUENT 1 EA IV (14:23)
== END 2017-11-25 15:35 | disposition home or self-care (01) ==
LOC: M ED 12:38
DX: K04.7 Periapical abscess without sinus (principal); F17.200 Nicotine dependence, unspecified, uncomplicated; R56.9 Unspecified convulsions; I51.89 Other ill-defined heart diseases; K21.9 Gastro-esophageal reflux disease without esophagitis; Z87.440 Personal history of urinary (tract) infections; F41.9 Anxiety disorder, unspecified; F32.9 Major depressive disorder, single episode, unspecified; F19.10 Other psychoactive substance abuse, uncomplicated; Z79.899 Other long term (current) drug therapy; Z88.6 Allergy status to analgesic agent; Z88.1 Allergy status to other antibiotic agents; Z88.5 Allergy status to narcotic agent
CPT/HCPCS: 85025

== ENCOUNTER 2017-11-25 18:34 | Emergency (ER) | payer OTHER ==
[2017-11-25] MEDS: NS 1,000 ML IV (19:52)
[2017-11-25] MEDS: methylPREDNISolone INJ 125 MG/2 ML VIAL (J2930) IV (19:52)
[2017-11-25] MEDS: diphenhydrAMINE INJ 50MG/ML VIAL (J1200) IV (19:52)
[2017-11-25] MEDS: LIDOCAINE VISCOUS 2% SOLN 15ML UDC TOP (19:52)
[2017-11-25 20:15] LABS: ANION GAP 9 MEQ/L (8-16); BLOOD UREA NITROGEN 9 MG/DL (7-18); CALCIUM LEVEL 8.4 MG/DL (8.5-10.1); CARBON DIOXIDE LEVEL 25 MEQ/L (21-32); CHLORIDE LEVEL 105 MEQ/L (98-107); CREATININE FOR GFR 1.14 MG/DL (0.55-1.30); GLOMERULAR FILTRATION RATE 57.1 (>60); GLUCOSE, FASTING 125 MG/DL (70-100); POTASSIUM SERUM 4.1 MEQ/L (3.5-5.1); SODIUM LEVEL 139 MEQ/L (136-145)
[2017-11-25] MEDS: AMPICILLIN SOD/SULBACTAM SOD 3 GM in D5W MINI-BAG PLUS 100 ML IV (21:45)
[2017-11-25] MEDS: KETOROLAC 30 MG/ML VIAL (J1885) IV (21:45)
[2017-11-25] MEDS ORDERED: ISOVUE-370 76% 100ML VIAL (Q9967) As Ordered (21:45)
[2017-11-26] MEDS: PERCOCET 5MG/325MG TAB PO (00:19)
== END 2017-11-26 00:27 | disposition home or self-care (01) ==
LOC: M ED 11-26 00:27
DX: K04.7 Periapical abscess without sinus (principal); T78.40XA Allergy, unspecified, initial encounter; Y92.9 Unspecified place or not applicable; Y93.9 Activity, unspecified; F17.200 Nicotine dependence, unspecified, uncomplicated; Z79.899 Other long term (current) drug therapy; Z88.6 Allergy status to analgesic agent; Z88.5 Allergy status to narcotic agent; Z88.1 Allergy status to other antibiotic agents
CPT/HCPCS: J1200

== ENCOUNTER 2017-12-02 13:02 | Inpatient (IN) | payer MEDICAID, OTHER ==
[2017-12-02 13:36] LABS: BASO # 0.1 10^3/uL (0.0-0.2); BASO % 0.4 % (0.0-1.0); EOS # 0.4 10^3/uL (0.0-0.50); EOS % 3.4 % (0.0-3.0); HEMATOCRIT 42.8 % (36.0-47.0); HEMOGLOBIN 14.5 g/dl (12.0-16.0); IMMATURE GRANULOCYTE % 0.4 % (0-3.0); LYMPH # 3.3 10^3/uL (1.5-4.5); MEAN CORPUSCULAR HEMOGLOBIN 31.9 pg (27.0-33.0); MEAN CORPUSCULAR HGB CONC 33.9 g/dl (32.0-36.5); MEAN CORPUSCULAR VOLUME 94.3 fl (80.0-96.0); MONO # 0.8 10^3/uL (0.0-0.8); MONO % 6.6 % (0.0-5.0); NEUTROPHILS # 6.8 10^3/uL (1.8-7.7); NEUTROPHILS % 60.2 % (36.0-66.0); PLATELET COUNT, AUTOMATED 340 10^3/uL (150-450); RED BLOOD COUNT 4.54 10^6/uL (4.00-5.40); WHITE BLOOD COUNT 11.3 10^3/uL (4.0-10.0)
[2017-12-02] MEDS: NS 1,000 ML IV (13:44)
[2017-12-02 13:51] LABS: CONTROL LINE HCG INT CTR LINE PRESENT; HCG, SERUM QUALITATIVE NEGATIVE (NEGATIVE)
[2017-12-02 13:59] LABS: ALBUMIN 4.1 GM/DL (3.2-5.2); ALBUMIN/GLOBULIN RATIO 1.14 (1.00-1.93); ALKALINE PHOSPHATASE 54 U/L (45-117); ALT/SGPT 27 U/L (12-78); ANION GAP 9 MEQ/L (8-16); AST/SGOT 22 U/L (7-37); BILIRUBIN,DIRECT < 0.1 MG/DL (0.0-0.2); BILIRUBIN,TOTAL 0.3 MG/DL (0.2-1.0); BLOOD UREA NITROGEN 14 MG/DL (7-18); CALCIUM LEVEL 9.4 MG/DL (8.5-10.1); CARBON DIOXIDE LEVEL 25 MEQ/L (21-32); CHLORIDE LEVEL 106 MEQ/L (98-107); CPK CREATINE PHOSPHOKINASE 80 U/L (26-192); CREATININE FOR GFR 0.93 MG/DL (0.55-1.30); GLOMERULAR FILTRATION RATE > 60.0 (>60); GLUCOSE, FASTING 99 MG/DL (70-100); SALICYLATE LEVEL 4.2 MG/DL (5.0-30.0); SODIUM LEVEL 140 MEQ/L (136-145); TOTAL PROTEIN 7.7 GM/DL (6.4-8.2)
[2017-12-02 14:07] LABS: THYROID STIMULATING HORMONE 0.951 uIU/ML (0.358-3.740)
[2017-12-02 14:07] LABS: ACETAMINOPHEN LEVEL < 2.0 UG/ML (10.0-30.0); ETHYL ALCOHOL (ETHANOL) < 0.003 % (0.000-0.010); POTASSIUM SERUM 5.5 MEQ/L (3.5-5.1)
[2017-12-02 14:44] LABS: POTASSIUM SERUM 4.8 MEQ/L (3.5-5.1)
[2017-12-02 16:05] LABS: AMPHETAMINES LEVEL URINE NEGATIVE (NEGATIVE); BARBITURATES URINE NEGATIVE (NEGATIVE); BENZODIAZEPINES URINE POSITIVE (NEGATIVE); CANNABINOIDS URINE NEGATIVE (NEGATIVE); COCAINE METABOLITE URINE NEGATIVE (NEGATIVE); METHADONE URINE NEGATIVE (NEGATIVE); OPIATES URINE NEGATIVE (NEGATIVE); PHENCYCLIDINE URINE NEGATIVE (NEGATIVE)
[2017-12-02] MEDS: IBUPROFEN 600 MG TAB PO (16:15)
[2017-12-02] MEDS ORDERED: MAALOX 30 ML SUSP *UDC PO (20:30)
[2017-12-02] MEDS ORDERED: MOM 30ML SUSPENSION UDC PO (20:30)
[2017-12-02] MEDS: QUEtiapine FUMARATE 200 MG TAB PO ×2 (21:00→23:45)
[2017-12-02] MEDS: traZODone 50 MG TAB PO (22:53)
[2017-12-02] MEDS ORDERED: LORazepam 0.5 MG TAB PO (23:00)
[2017-12-03] MEDS: IBUPROFEN 400 MG TAB PO ×4 (00:50→23:16)
[2017-12-03] MEDS: QUEtiapine FUMARATE 200 MG TAB PO (09:00)
[2017-12-03] MEDS: SERTRALINE HCL 50 MG TAB PO (09:00)
[2017-12-03] MEDS: NICOTINE 21MG/24HR 1 EA TRANSDERMAL TD (09:09)
[2017-12-03] MEDS ORDERED: QUEtiapine FUMARATE 100 MG TAB PO (10:45)
[2017-12-03] MEDS: hydrOXYzine 25 MG TAB PO (14:54)
[2017-12-03] MEDS: QUEtiapine FUMARATE 100 MG TAB PO (21:00)
[2017-12-03] MEDS: hydrOXYzine 50 MG TAB PO (21:24)
[2017-12-03] MEDS: AUGMENTIN 875 MG TAB PO (23:13)
[2017-12-04] MEDS: SERTRALINE HCL 50 MG TAB PO (08:07)
[2017-12-04] MEDS: AUGMENTIN 875 MG TAB PO ×2 (08:09→21:17)
[2017-12-04] MEDS: hydrOXYzine 25 MG TAB PO (08:09)
[2017-12-04] MEDS: NICOTINE 21MG/24HR 1 EA TRANSDERMAL TD (08:09)
[2017-12-04] MEDS: DIVALPROEX 250 MG TAB PO ×2 (09:56→21:17)
[2017-12-04] MEDS: CitaloPRAM (CeleXA) 10 MG TABLET PO (09:56)
[2017-12-04] MEDS: QUEtiapine FUMARATE 12.5 MG HALF-TAB PO ×2 (15:54→21:17)
[2017-12-04] MEDS: hydrOXYzine 50 MG TAB PO (21:18)
[2017-12-04] MEDS: traZODone 50 MG TAB PO (22:58)
[2017-12-05] MEDS: AUGMENTIN 875 MG TAB PO ×2 (08:24→20:40)
[2017-12-05] MEDS: DIVALPROEX 500 MG TAB PO ×2 (08:24→20:40)
[2017-12-05] MEDS: CitaloPRAM (CeleXA) 10 MG TABLET PO (08:25)
[2017-12-05] MEDS: NICOTINE 21MG/24HR 1 EA TRANSDERMAL TD (08:26)
[2017-12-05] MEDS: QUEtiapine FUMARATE 100 MG TAB PO (20:40)
[2017-12-05] MEDS: hydrOXYzine 50 MG TAB PO (20:40)
[2017-12-06] MEDS: DIVALPROEX 500 MG TAB PO ×2 (08:53→20:36)
[2017-12-06] MEDS: CitaloPRAM (CeleXA) 10 MG TABLET PO (08:53)
[2017-12-06] MEDS: NICOTINE 21MG/24HR 1 EA TRANSDERMAL TD (08:53)
[2017-12-06] MEDS: AUGMENTIN 875 MG TAB PO ×2 (08:53→20:36)
[2017-12-06] MEDS: QUEtiapine FUMARATE 50 MG TAB PO (20:35)
[2017-12-06] MEDS: hydrOXYzine 50 MG TAB PO (20:38)
[2017-12-07] MEDS: AUGMENTIN 875 MG TAB PO ×2 (08:50→20:07)
[2017-12-07] MEDS: DIVALPROEX 500 MG TAB PO ×2 (08:50→20:07)
[2017-12-07] MEDS: CitaloPRAM (CeleXA) 10 MG TABLET PO (08:50)
[2017-12-07] MEDS: NICOTINE 21MG/24HR 1 EA TRANSDERMAL TD (08:51)
[2017-12-07] MEDS: QUEtiapine FUMARATE 200 MG TAB PO (20:07)
[2017-12-07] MEDS: hydrOXYzine 50 MG TAB PO (23:59)
[2017-12-08] MEDS: NICOTINE 21MG/24HR 1 EA TRANSDERMAL TD (08:26)
[2017-12-08] MEDS: DIVALPROEX 500 MG TAB PO ×2 (08:27→20:21)
[2017-12-08] MEDS: CitaloPRAM (CeleXA) 10 MG TABLET PO (08:27)
[2017-12-08] MEDS: AUGMENTIN 875 MG TAB PO ×2 (08:27→20:21)
[2017-12-08] MEDS: QUEtiapine FUMARATE 200 MG TAB PO (20:21)
[2017-12-09] MEDS: hydrOXYzine 50 MG TAB PO ×2 (00:31→22:44)
[2017-12-09 07:00] LABS: ALBUMIN 3.3 GM/DL (3.2-5.2); ALBUMIN/GLOBULIN RATIO 1.14 (1.00-1.93); ALKALINE PHOSPHATASE 43 U/L (45-117); ALT/SGPT 18 U/L (12-78); ANION GAP 6 MEQ/L (8-16); AST/SGOT 6 U/L (7-37); BILIRUBIN,TOTAL 0.6 MG/DL (0.2-1.0); BLOOD UREA NITROGEN 10 MG/DL (7-18); CALCIUM LEVEL 7.9 MG/DL (8.5-10.1); CARBON DIOXIDE LEVEL 33 MEQ/L (21-32); CHLORIDE LEVEL 102 MEQ/L (98-107); CREATININE FOR GFR 0.67 MG/DL (0.55-1.30); GLOMERULAR FILTRATION RATE > 60.0 (>60); GLUCOSE, FASTING 83 MG/DL (70-100); POTASSIUM SERUM 4.3 MEQ/L (3.5-5.1); SODIUM LEVEL 141 MEQ/L (136-145); TOTAL PROTEIN 6.2 GM/DL (6.4-8.2); VALPROIC ACID (DEPAKOTE) 84.2 UG/ML (50.0-100.0)
[2017-12-09] MEDS: NICOTINE 21MG/24HR 1 EA TRANSDERMAL TD (08:35)
[2017-12-09] MEDS: CitaloPRAM (CeleXA) 10 MG TABLET PO (08:35)
[2017-12-09] MEDS: DIVALPROEX 500 MG TAB PO ×2 (08:36→20:29)
[2017-12-09] MEDS: AUGMENTIN 875 MG TAB PO ×2 (08:36→20:29)
[2017-12-09] MEDS: QUEtiapine FUMARATE 200 MG TAB PO (20:29)
[2017-12-10] MEDS: AUGMENTIN 875 MG TAB PO ×2 (09:04→20:17)
[2017-12-10] MEDS: DIVALPROEX 500 MG TAB PO ×2 (09:04→20:17)
[2017-12-10] MEDS: CitaloPRAM (CeleXA) 20 MG TAB PO (09:04)
[2017-12-10] MEDS: NICOTINE 21MG/24HR 1 EA TRANSDERMAL TD (09:05)
[2017-12-10] MEDS: QUEtiapine FUMARATE 100 MG TAB PO (20:17)
[2017-12-10] MEDS: hydrOXYzine 50 MG TAB PO (20:17)
[2017-12-11] MEDS: IBUPROFEN 400 MG TAB PO (06:30)
[2017-12-11] MEDS: AUGMENTIN 875 MG TAB PO ×2 (09:31→21:22)
[2017-12-11] MEDS: DIVALPROEX 500 MG TAB PO ×2 (09:31→21:22)
[2017-12-11] MEDS: CitaloPRAM (CeleXA) 20 MG TAB PO (09:31)
[2017-12-11] MEDS: NICOTINE 21MG/24HR 1 EA TRANSDERMAL TD (09:32)
[2017-12-11] MEDS: hydrOXYzine 50 MG TAB PO ×2 (15:27→21:23)
[2017-12-11] MEDS: QUEtiapine FUMARATE 100 MG TAB PO (21:23)
[2017-12-12] MEDS: AUGMENTIN 875 MG TAB PO (08:10)
[2017-12-12] MEDS: hydrOXYzine 50 MG TAB PO (08:10)
[2017-12-12] MEDS: DIVALPROEX 500 MG TAB PO (08:10)
[2017-12-12] MEDS: CitaloPRAM (CeleXA) 20 MG TAB PO (08:10)
[2017-12-12] MEDS: NICOTINE 21MG/24HR 1 EA TRANSDERMAL TD (08:11)
== END 2017-12-12 08:45 | DRG 885 ==
LOC: M ED 13:02 → M ED INP 20:24 → M PSY 21:16
DX: F31.60 Bipolar disorder, current episode mixed, unspecified (principal); F15.20 Other stimulant dependence, uncomplicated; F10.20 Alcohol dependence, uncomplicated; Z91.5 Personal history of self-harm; Z79.899 Other long term (current) drug therapy; F17.210 Nicotine dependence, cigarettes, uncomplicated

== ENCOUNTER 2017-12-12 17:17 | Inpatient (IN) | payer MEDICAID ==
[2017-12-12] MEDS ORDERED: MAALOX 30 ML SUSP *UDC PO (18:30)
[2017-12-12] MEDS ORDERED: ACETAMINOPHEN TAB 650MG DOSE (2X325MG) PO (18:30)
[2017-12-12] MEDS ORDERED: MOM 30ML SUSPENSION UDC PO (18:30)
[2017-12-12] MEDS ORDERED: traZODone 50 MG TAB PO (18:30)
[2017-12-12 19:19] LABS: HEMATOCRIT 33.9 % (36.0-47.0); HEMOGLOBIN 11.5 g/dl (12.0-16.0); MEAN CORPUSCULAR HEMOGLOBIN 31.8 pg (27.0-33.0); MEAN CORPUSCULAR HGB CONC 33.9 g/dl (32.0-36.5); MEAN CORPUSCULAR VOLUME 93.6 fl (80.0-96.0); PLATELET COUNT, AUTOMATED 234 10^3/uL (150-450); RED BLOOD COUNT 3.62 10^6/uL (4.00-5.40); RED CELL DISTRIBUTION WIDTH 12.4 % (11.5-14.5); WHITE BLOOD COUNT 6.5 10^3/uL (4.0-10.0)
[2017-12-12 19:43] LABS: AMPHETAMINES LEVEL URINE NEGATIVE (NEGATIVE); BARBITURATES URINE NEGATIVE (NEGATIVE); BENZODIAZEPINES URINE NEGATIVE (NEGATIVE); CANNABINOIDS URINE NEGATIVE (NEGATIVE); COCAINE METABOLITE URINE NEGATIVE (NEGATIVE); METHADONE URINE NEGATIVE (NEGATIVE); OPIATES URINE NEGATIVE (NEGATIVE); PHENCYCLIDINE URINE NEGATIVE (NEGATIVE)
[2017-12-12 19:56] LABS: ACETAMINOPHEN LEVEL < 2.0 UG/ML (10.0-30.0); ALBUMIN 3.4 GM/DL (3.2-5.2); ALBUMIN/GLOBULIN RATIO 1.03 (1.00-1.93); ALKALINE PHOSPHATASE 41 U/L (45-117); ALT/SGPT 21 U/L (12-78); ANION GAP 7 MEQ/L (8-16); AST/SGOT 40 U/L (7-37); BILIRUBIN,DIRECT < 0.1 MG/DL (0.0-0.2); BILIRUBIN,TOTAL 0.3 MG/DL (0.2-1.0); BLOOD UREA NITROGEN 14 MG/DL (7-18); CALCIUM LEVEL 8.5 MG/DL (8.5-10.1); CARBON DIOXIDE LEVEL 29 MEQ/L (21-32); CHLORIDE LEVEL 103 MEQ/L (98-107); CREATININE FOR GFR 0.75 MG/DL (0.55-1.30); GLOMERULAR FILTRATION RATE > 60.0 (>60); GLUCOSE, FASTING 89 MG/DL (70-100); SALICYLATE LEVEL < 1.7 MG/DL (5.0-30.0); SODIUM LEVEL 139 MEQ/L (136-145); TOTAL PROTEIN 6.7 GM/DL (6.4-8.2)
[2017-12-12 19:57] LABS: ETHYL ALCOHOL (ETHANOL) < 0.003 % (0.000-0.010)
[2017-12-12] MEDS: QUEtiapine FUMARATE 100 MG TAB PO (21:12)
[2017-12-12] MEDS: DIVALPROEX 500 MG TAB PO (21:12)
[2017-12-13] MEDS: CitaloPRAM (CeleXA) 20 MG TAB PO (08:55)
[2017-12-13] MEDS: DIVALPROEX 500 MG TAB PO ×2 (08:55→20:18)
[2017-12-13] MEDS: hydrOXYzine 50 MG TAB PO ×3 (08:56→22:12)
[2017-12-13] MEDS: NICOTINE 14 MG/24 HR TRANSDERMAL TD (10:19)
[2017-12-13 10:31] LABS: CONTROL LINE HCG INT CTR LINE PRESENT; HCG, SERUM QUALITATIVE NEGATIVE (NEGATIVE)
[2017-12-13] MEDS: QUEtiapine FUMARATE 100 MG TAB PO (20:18)
[2017-12-14 08:08] LABS: ALBUMIN 3.1 GM/DL (3.2-5.2); ALKALINE PHOSPHATASE 42 U/L (45-117); ALT/SGPT 21 U/L (12-78); ANION GAP 5 MEQ/L (8-16); AST/SGOT 27 U/L (7-37); BILIRUBIN,TOTAL 0.3 MG/DL (0.2-1.0); BLOOD UREA NITROGEN 10 MG/DL (7-18); CALCIUM LEVEL 8.6 MG/DL (8.5-10.1); CARBON DIOXIDE LEVEL 33 MEQ/L (21-32); CHLORIDE LEVEL 103 MEQ/L (98-107); GLOMERULAR FILTRATION RATE > 60.0 (>60); GLUCOSE, FASTING 95 MG/DL (70-100); POTASSIUM SERUM 4.8 MEQ/L (3.5-5.1); SODIUM LEVEL 141 MEQ/L (136-145); TOTAL PROTEIN 6.2 GM/DL (6.4-8.2)
[2017-12-14] MEDS: hydrOXYzine 50 MG TAB PO ×3 (08:21→20:18)
[2017-12-14] MEDS: CitaloPRAM (CeleXA) 20 MG TAB PO (08:21)
[2017-12-14] MEDS: DIVALPROEX 500 MG TAB PO ×2 (08:21→20:18)
[2017-12-14] MEDS: NICOTINE 14 MG/24 HR TRANSDERMAL TD (08:22)
[2017-12-14 10:20] LABS: HEPATITIS B SURFACE ANTIGEN NEGATIVE (NEGATIVE)
[2017-12-14 10:43] LABS: HEPATITIS B CORE ANTIBODY IGM NEGATIVE (NEGATIVE)
[2017-12-14 10:46] LABS: HEPATITIS A ANTIBODY IGM NEGATIVE (NEGATIVE)
[2017-12-14] MEDS: QUEtiapine FUMARATE 100 MG TAB PO (20:18)
[2017-12-15] MEDS: hydrOXYzine 50 MG TAB PO ×3 (00:31→22:22)
[2017-12-15] MEDS: NICOTINE 14 MG/24 HR TRANSDERMAL TD (08:23)
[2017-12-15] MEDS: DIVALPROEX 500 MG TAB PO ×2 (08:23→22:20)
[2017-12-15] MEDS: CitaloPRAM (CeleXA) 20 MG TAB PO (08:23)
[2017-12-15] MEDS: QUEtiapine FUMARATE 100 MG TAB PO (22:20)
[2017-12-16] MEDS: CitaloPRAM (CeleXA) 20 MG TAB PO (09:24)
[2017-12-16] MEDS: DIVALPROEX 500 MG TAB PO ×2 (09:24→21:13)
[2017-12-16] MEDS: NICOTINE 14 MG/24 HR TRANSDERMAL TD (09:24)
[2017-12-16] MEDS: QUEtiapine FUMARATE 100 MG TAB PO (21:12)
[2017-12-16] MEDS: hydrOXYzine 50 MG TAB PO (21:13)
[2017-12-17] MEDS: hydrOXYzine 50 MG TAB PO ×2 (02:06→11:28)
[2017-12-17] MEDS: DIVALPROEX 500 MG TAB PO (09:07)
[2017-12-17] MEDS: CitaloPRAM (CeleXA) 20 MG TAB PO (09:07)
[2017-12-17] MEDS: NICOTINE 14 MG/24 HR TRANSDERMAL TD (09:07)
== END 2017-12-17 12:30 | disposition home or self-care (01) | DRG 885 ==
LOC: M ED 17:17 → M ED INP 18:22 → M PSY 20:37
PROVIDERS: Psychiatry & Neurology Psychiatry
DX: F31.9 Bipolar disorder, unspecified (principal); F19.20 Other psychoactive substance dependence, uncomplicated; Z79.899 Other long term (current) drug therapy; F41.9 Anxiety disorder, unspecified; F17.200 Nicotine dependence, unspecified, uncomplicated; Z88.8 Allergy status to other drugs, medicaments and biological substances; Z88.5 Allergy status to narcotic agent; F90.9 Attention-deficit hyperactivity disorder, unspecified type; F10.20 Alcohol dependence, uncomplicated

== ENCOUNTER → 2018-01-10 | Outpatient (CLI) | payer MEDICAID | LOC: M OUTALCOH 07:48 | DX: F10.20 Alcohol dependence, uncomplicated (principal); F13.10 Sedative, hypnotic or anxiolytic abuse, uncomplicated ==

== ENCOUNTER 2018-01-18 11:46 | Outpatient (RCR) | payer MEDICAID | END 2018-02-11 | LOC: M OUTALCOH 02-01 10:00 | DX: F10.20 Alcohol dependence, uncomplicated (principal); F13.10 Sedative, hypnotic or anxiolytic abuse, uncomplicated; F17.200 Nicotine dependence, unspecified, uncomplicated ==

== ENCOUNTER → 2018-03-26 | Outpatient (CLI) | payer MEDICAID ==
[2018-03-26 15:39] LABS: BASO % 0.7 % (0.0-1.0); EOS # 0.9 10^3/uL (0.0-0.50); EOS % 15.3 % (0.0-3.0); HEMATOCRIT 36.9 % (36.0-47.0); HEMOGLOBIN 11.6 g/dl (12.0-15.5); IMMATURE GRANULOCYTE % 0.2 % (0-3.0); LYMPH # 2.9 10^3/uL (1.5-4.5); LYMPH % 47.4 % (24.0-44.0); MEAN CORPUSCULAR HEMOGLOBIN 29.8 pg (27.0-33.0); MEAN CORPUSCULAR HGB CONC 31.4 g/dl (32.0-36.5); MEAN CORPUSCULAR VOLUME 94.9 fl (80.0-96.0); MONO # 0.8 10^3/uL (0.0-0.8); MONO % 12.5 % (0.0-5.0); NEUTROPHILS # 1.5 10^3/uL (1.8-7.7); NEUTROPHILS % 23.9 % (36.0-66.0); PLATELET COUNT, AUTOMATED 217 10^3/uL (150-450); RED BLOOD COUNT 3.89 10^6/uL (4.00-5.40); RED CELL DISTRIBUTION WIDTH 14.6 % (11.5-14.5); WHITE BLOOD COUNT 6.1 10^3/uL (4.0-10.0)
[2018-03-26 16:32] LABS: ALBUMIN 3.1 GM/DL (3.2-5.2); ALBUMIN/GLOBULIN RATIO 0.97 (1.00-1.93); ALKALINE PHOSPHATASE 37 U/L (45-117); ALT/SGPT 35 U/L (12-78); ANION GAP 8 MEQ/L (8-16); AST/SGOT 25 U/L (7-37); BILIRUBIN,TOTAL 0.3 MG/DL (0.2-1.0); BLOOD UREA NITROGEN 17 MG/DL (7-18); CALCIUM LEVEL 8.2 MG/DL (8.5-10.1); CARBON DIOXIDE LEVEL 30 MEQ/L (21-32); CHLORIDE LEVEL 104 MEQ/L (98-107); CREATININE FOR GFR 0.63 MG/DL (0.55-1.30); GLOMERULAR FILTRATION RATE > 60.0 (>60); GLUCOSE, FASTING 80 MG/DL (70-100); POTASSIUM SERUM 4.3 MEQ/L (3.5-5.1); SODIUM LEVEL 142 MEQ/L (136-145); TOTAL PROTEIN 6.3 GM/DL (6.4-8.2)
[2018-03-26 16:44] LABS: APPEARANCE, URINE HAZY (CLEAR); BACTERIA, URINE AUTO NEGATIVE (NEGATIVE); BILIRUBIN, URINE AUTO NEGATIVE (NEGATIVE); BLOOD, URINE BLOOD NEGATIVE (NEGATIVE); COLOR, URINE YELLOW (YELLOW); GLUCOSE, URINE (UA) AUTO NEGATIVE (NEGATIVE); KETONE, URINE AUTO NEGATIVE (NEGATIVE); LEUKOCYTE ESTERASE, URINE AUTO NEGATIVE (NEGATIVE); MUCUS, URINE SMALL (NEGATIVE); NITRITE, URINE AUTO NEGATIVE (NEGATIVE); PROTEIN, URINE AUTO NEGATIVE (NEGATIVE); RBC, URINE AUTO 3 /HPF (0-3); SPECIFIC GRAVITY URINE AUTO 1.023 (1.002-1.035); SQUAMOUS EPITHELIAL CELL UR AU 3 /HPF (0-6); UROBILINOGEN, URINE AUTO 0.2 mg/dL (0.0-2.0); WBC, URINE AUTO 3 /HPF (0-3)
[2018-03-27 08:45] LABS: HEPATITIS B SURFACE ANTIBODY NEGATIVE (POSITIVE)
[2018-03-27 08:47] LABS: HEPATITIS B SURFACE ANTIGEN NEGATIVE (NEGATIVE)
[2018-03-27 09:07] LABS: HEPATITIS C VIRUS ABY INDEX < 0.0 INDEX (<0.8)
[2018-03-28 08:09] LABS: HEPATITIS A IgG TOTAL Negative (Negative)
== END ==
LOC: M LAB 14:36
DX: Z87.891 Personal history of nicotine dependence (principal)
CPT/HCPCS: 80053

== ENCOUNTER → 2018-04-11 | Outpatient (CLI) | payer OTHER ==
[2018-04-11 10:52] LABS: VALPROIC ACID (DEPAKOTE) 5.1 UG/ML (50.0-100.0)
== END ==
LOC: M LAB 10:04
DX: F11.20 Opioid dependence, uncomplicated (principal)
CPT/HCPCS: 80164

== ENCOUNTER → 2018-05-22 | Outpatient (REF) | LOC: M SMT 11:06 | DX: M79.641 Pain in right hand (principal); M25.562 Pain in left knee ==

== ENCOUNTER → 2018-11-18 | Outpatient (REF) ==
[~2018-11-18] MED LIST changes: +ACET30TAB PO; +ACET500T15 PO; +AMOX875T2 PO; +AUGM875T28 PO; +BENA25CA4 PO; +BENA25TA10 PO; +BUSP10TA PO; +BUSP5TA PO; +CELE20TA PO; +CITA20TA4 PO; +CLEO300C2 PO; +DEPA1TAB3 PO; +HYDR-3713 PO; +HYDRO50TAB PO; -MAALOX 30 ML SUSP *UDC PO; -MOM 30ML SUSPENSION UDC PO; +MULT1TAB10 PO; +NORCOTAB PO; +OLAN5TAB PO; +PENI250T57 PO; +PENI500T PO; +PRED20TA PO; +PROZ10CA7 PO; +QUET1TAB10 PO; +QUET1TAB8 PO; +QUET400T PO; +VENL37.52 PO; +VENL37TA PO; +VENL75CA2 PO; +VIST50CA PO; +VITA100T60 PO
[2018-11-18 10:52] LABS: RUBELLA IgG QUALITATIVE IMMUNE (IMMUNE)
== END ==
LOC: M LAB 09:32
PROVIDERS: ATTEND Nurse Practitioner Adult Health
DX: Z02.1 Encounter for pre-employment examination (principal)

== ENCOUNTER → 2019-02-28 | Outpatient (CLI) | payer OTHER ==
[~2019-02-28] MED LIST changes: +ACET-716 PO; -ACET30TAB PO; -CITA20TA4 PO; +CITA20TA6 PO; +HYDR-3715 PO; -NORCOTAB PO
[2019-02-28 09:22] LABS: HEMATOCRIT 40.7 % (36.0-47.0); HEMOGLOBIN 12.9 g/dl (12.0-15.5); MEAN CORPUSCULAR HEMOGLOBIN 29.2 pg (27.0-33.0); MEAN CORPUSCULAR HGB CONC 31.7 g/dl (32.0-36.5); MEAN CORPUSCULAR VOLUME 92.1 fl (80.0-96.0); PLATELET COUNT, AUTOMATED 309 10^3/uL (150-450); RED BLOOD COUNT 4.42 10^6/uL (4.00-5.40); WHITE BLOOD COUNT 8.1 10^3/uL (4.0-10.0)
[2019-02-28 09:42] LABS: ALBUMIN 4.1 GM/DL (3.2-5.2); ALT/SGPT 21 U/L (12-78); BILIRUBIN,TOTAL 0.9 MG/DL (0.2-1.0); BLOOD UREA NITROGEN 13 MG/DL (7-18); CALCIUM LEVEL 9.4 MG/DL (8.5-10.1); CARBON DIOXIDE LEVEL 31 MEQ/L (21-32); CHLORIDE LEVEL 106 MEQ/L (98-107); CREATININE FOR GFR 0.85 MG/DL (0.55-1.30); GLOMERULAR FILTRATION RATE > 60.0 (>60); GLUCOSE, FASTING 78 MG/DL (70-100); SODIUM LEVEL 140 MEQ/L (136-145); TOTAL PROTEIN 7.2 GM/DL (6.4-8.2)
[2019-02-28 09:45] LABS: HCG, SERUM QUALITATIVE NEGATIVE (NEGATIVE)
[2019-02-28 10:04] LABS: HEPATITIS B SURFACE ANTIGEN NEGATIVE (NEGATIVE)
[2019-02-28 10:33] LABS: HIV 1&2 SCREEN CENTAUR NEGATIVE (NEGATIVE)
[2019-02-28 11:55] LABS: CHLAMYDIA DNA AMPLIFICATION NEGATIVE (NEGATIVE); GC DNA AMPLIFICATION NEGATIVE (NEGATIVE)
== END ==
LOC: M LAB 08:33
PROVIDERS: ATTEND Family Medicine
DX: F11.21 Opioid dependence, in remission (principal)

== ENCOUNTER → 2019-03-04 | Outpatient (CLI) | payer OTHER ==
--- NOTE | 2019-03-04 11:46 | ECGEPIP ---
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
== END ==
LOC: M EKG 09:37
PROVIDERS: ATTEND Family Medicine
DX: F11.20 Opioid dependence, uncomplicated (principal)

== ENCOUNTER → 2019-10-21 | Outpatient (CLI) | payer OTHER ==
[~2019-10-21] MED LIST changes: +HYDR1TAB33 PO; -HYDRO50TAB PO
== END ==
LOC: M LAB 13:09
PROVIDERS: ATTEND Family Medicine
DX: F11.11 Opioid abuse, in remission (principal)
CPT/HCPCS: 36415; G0480

== ENCOUNTER → 2019-10-22 | Outpatient (CLI) | payer OTHER | LOC: M LAB 09:18 | PROVIDERS: ATTEND Family Medicine | DX: F11.20 Opioid dependence, uncomplicated (principal) | CPT/HCPCS: 36415; G0480 ==

== ENCOUNTER → 2020-02-20 | Outpatient (CLI) | payer OTHER ==
[~2020-02-20] MED LIST changes: +QUET100T2 PO; -QUET1TAB8 PO
[2020-02-20 13:40] LABS: HEMATOCRIT 41.2 % (36.0-47.0); HEMOGLOBIN 13.3 g/dl (12.0-15.5); MEAN CORPUSCULAR HEMOGLOBIN 30.1 pg (27.0-33.0); MEAN CORPUSCULAR HGB CONC 32.3 g/dl (32.0-36.5); MEAN CORPUSCULAR VOLUME 93.2 fl (80.0-96.0); PLATELET COUNT, AUTOMATED 286 10^3/uL (150-450); RED BLOOD COUNT 4.42 10^6/uL (4.00-5.40); WHITE BLOOD COUNT 7.8 10^3/uL (4.0-10.0)
[2020-02-20 14:19] LABS: HCG, SERUM QUALITATIVE NEGATIVE (NEGATIVE)
[2020-02-20 14:34] LABS: ALBUMIN 3.3 GM/DL (3.2-5.2); ALT/SGPT 25 U/L (12-78); BILIRUBIN,TOTAL 0.4 MG/DL (0.2-1.0); BLOOD UREA NITROGEN 10 MG/DL (7-18); CALCIUM LEVEL 9.2 MG/DL (8.5-10.1); CARBON DIOXIDE LEVEL 30 MEQ/L (21-32); CHLAMYDIA DNA AMPLIFICATION NEGATIVE (NEGATIVE); CHLORIDE LEVEL 104 MEQ/L (98-107); GC DNA AMPLIFICATION NEGATIVE (NEGATIVE); GLOMERULAR FILTRATION RATE > 60.0 (>60); GLUCOSE, FASTING 96 MG/DL (70-100); HEPATITIS B SURFACE ANTIGEN NEGATIVE (NEGATIVE); POTASSIUM SERUM 4.7 MEQ/L (3.5-5.1); SODIUM LEVEL 139 MEQ/L (136-145); TOTAL PROTEIN 6.7 GM/DL (6.4-8.2)
[2020-02-20 14:56] LABS: HIV 1&2 SCREEN CENTAUR NEGATIVE (NEGATIVE)
--- NOTE | 2020-02-21 01:19 | ECGEPIP ---
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
== END ==
LOC: M LAB 11:29
PROVIDERS: ATTEND Family Medicine
DX: F11.11 Opioid abuse, in remission (principal); R94.31 Abnormal electrocardiogram [ECG] [EKG]

== ENCOUNTER → 2020-12-24 | Outpatient (CLI) | payer OTHER ==
[~2020-12-24] MED LIST changes: -QUET1TAB10 PO; +QUET300T2 PO
--- NOTE | 2020-12-24 11:03 | REPMRS ---
Patient History The patient states she had a clinical breast exam in 2020. Family history of breast cancer in maternal aunt. Taking hormonal contraceptives for 10 years. Digital Woman Screen Mammo: December 24, 2020 - Exam #: [id number] Bilateral CC and MLO view(s) were taken. Technologist: Azalia Dewitt, Technologist No prior studies available for comparison. FINDINGS: The breast tissue is heterogeneously dense. This may lower the sensitivity of mammography. The Volpara volumetric breast density category is: C. There is no evidence of dominant mass, architectural distortion, or grouped microcalcification typical of malignancy. 3-D tomosynthesis shows no additional findings. Assessment: BI-RADS/ACR category 1 mammogram. Negative Mammogram. Recommendation Routine screening mammogram of both breasts in 1 year (for women over age 40). This patient's [facility] Lifetime Breast Cancer RIsk is estimated at 16.5 %. This mammogram was interpreted with the aid of an FDA-approved computer-aided dectection system. Electronically Signed By: Eh Rascon MD 12/24/20 0532
== END ==
LOC: M WHC 09:36
PROVIDERS: ATTEND Physician Assistant Medical
DX: Z12.31 Encounter for screening mammogram for malignant neoplasm of breast (principal); Z79.3 Long term (current) use of hormonal contraceptives

== ENCOUNTER → 2021-06-08 | Outpatient (REF) ==
[~2021-06-08] MED LIST changes: +OLAN1TAB16 PO; -OLAN5TAB PO; -QUET400T PO; +QUET400T2 PO
== END ==
LOC: M LABSMTC 13:55
PROVIDERS: ATTEND Family Medicine
DX: Z20.822 Contact with and (suspected) exposure to COVID-19 (principal)

== ENCOUNTER → 2021-12-05 | Outpatient (CLI) | payer OTHER ==
[2021-12-05 08:18] LABS: HEMATOCRIT 36.1 % (36.0-47.0); HEMOGLOBIN 11.8 g/dl (12.0-15.5); MEAN CORPUSCULAR HEMOGLOBIN 29.7 pg (27.0-33.0); MEAN CORPUSCULAR HGB CONC 32.7 g/dl (32.0-36.5); MEAN CORPUSCULAR VOLUME 90.9 fl (80.0-96.0); PLATELET COUNT, AUTOMATED 229 10^3/uL (150-450); RED BLOOD COUNT 3.97 10^6/uL (4.00-5.40); WHITE BLOOD COUNT 8.5 10^3/uL (4.0-10.0)
[2021-12-05 09:01] LABS: ALBUMIN 3.8 GM/DL (3.2-5.2); ALT/SGPT 20 U/L (12-78); BILIRUBIN,TOTAL 0.7 MG/DL (0.2-1.0); BLOOD UREA NITROGEN 17 MG/DL (7-18); CALCIUM LEVEL 8.7 MG/DL (8.5-10.1); CARBON DIOXIDE LEVEL 30 MEQ/L (21-32); CHLORIDE LEVEL 102 MEQ/L (98-107); CREATININE FOR GFR 0.82 MG/DL (0.55-1.30); GLOMERULAR FILTRATION RATE > 60.0 (>58); GLUCOSE, FASTING 98 MG/DL (70-100); POTASSIUM SERUM 3.7 MEQ/L (3.5-5.1); SODIUM LEVEL 139 MEQ/L (136-145); TOTAL PROTEIN 6.9 GM/DL (6.4-8.2)
[2021-12-05 09:48] LABS: GC DNA AMPLIFICATION NEGATIVE (NEGATIVE)
[2021-12-05 11:52] LABS: HCG, SERUM QUALITATIVE NEGATIVE (NEGATIVE)
[2021-12-05 12:00] LABS: HEPATITIS B SURFACE ANTIGEN NEGATIVE (NEGATIVE)
[2021-12-05 12:28] LABS: HEPATITIS C VIRUS ABY INDEX 0.1 INDEX (<0.8)
[2021-12-05 12:29] LABS: HIV 1&2 SCREEN CENTAUR NEGATIVE (NEGATIVE)
== END ==
LOC: M EKG 07:22
PROVIDERS: ATTEND Family Medicine
DX: F10.20 Alcohol dependence, uncomplicated (principal)

== ENCOUNTER → 2022-03-24 | Outpatient (REF) | LOC: M EMP 09:20 | PROVIDERS: ATTEND Family Medicine | DX: Z11.52 Encounter for screening for COVID-19 (principal) ==

== ENCOUNTER 2022-07-11 04:29 | Emergency (ER) | payer OTHER ==
[~2022-07-11] VITALS: Ht 154.9 cm; Wt 44.5 kg
[2022-07-11 06:24] VITALS: BP 118/82
[2022-07-11] MEDS ORDERED: ACETAMINOPHEN 325 MG TAB PO ONE (06:50)
== END 2022-07-11 06:58 | disposition left against medical advice (07) ==
LOC: M ED 04:29
DX: S22.32XA Fracture of one rib, left side, initial encounter for closed fracture (principal); W18.2XXA Fall in (into) shower or empty bathtub, initial encounter; K21.9 Gastro-esophageal reflux disease without esophagitis; F41.9 Anxiety disorder, unspecified; Z88.5 Allergy status to narcotic agent; Z88.1 Allergy status to other antibiotic agents; Y92.9 Unspecified place or not applicable; Y93.E1 Activity, personal bathing and showering; Z79.899 Other long term (current) drug therapy; Z53.21 Procedure and treatment not carried out due to patient leaving prior to being seen by health care provider; Y99.9 Unspecified external cause status

== ENCOUNTER 2023-10-08 11:50 | Emergency (ER) | payer OTHER ==
[~2023-10-08] VITALS: Ht 154.9 cm; Wt 55.0 kg
[2023-10-08 12:48] LABS: BASO # 0.1 10^3/uL (0.0-0.2); BASO % 0.3 % (0.0-1.0); EOS # 0.1 10^3/uL (0.0-0.5); EOS % 0.3 % (0.0-3.0); HEMATOCRIT 36.2 % (36.0-47.0); HEMOGLOBIN 12.4 g/dl (12.0-15.5); LYMPH # 1.2 10^3/uL (1.5-5.0); LYMPH % 6.5 % (24.0-44.0); MEAN CORPUSCULAR HEMOGLOBIN 31.3 pg (27.0-33.0); MEAN CORPUSCULAR HGB CONC 34.3 g/dl (32.0-36.5); MEAN CORPUSCULAR VOLUME 91.4 fl (80.0-96.0); MONO % 11.7 % (2.0-8.0); NEUTROPHILS # 15.1 10^3/uL (1.5-8.5); NEUTROPHILS % 80.9 % (36.0-66.0); PLATELET COUNT, AUTOMATED 276 10^3/uL (150-450); RED BLOOD COUNT 3.96 10^6/uL (4.00-5.40); WHITE BLOOD COUNT 18.6 10^3/uL (4.0-10.0)
[2023-10-08 13:10] LABS: ALBUMIN 3.5 G/DL (3.2-5.2); ALKALINE PHOSPHATASE 51 U/L (46-116); ALT/SGPT 22 U/L (7.0-40); AST/SGOT 33 U/L (<34); BILIRUBIN,DIRECT 0.4 MG/DL (<0.4); BILIRUBIN,TOTAL 1.6 MG/DL (0.3-1.2); BLOOD UREA NITROGEN 7 MG/DL (9-23); CALCIUM LEVEL 9.4 MG/DL (8.5-10.1); CARBON DIOXIDE LEVEL 24 MMOL/L (20-31); CHLORIDE LEVEL 104 MMOL/L (98-107); CREATININE FOR GFR 0.68 MG/DL (0.55-1.30); GLOMERULAR FILTRATION RATE > 60.0 (>58); GLUCOSE, FASTING 106 MG/DL (60-100); POTASSIUM SERUM 4.3 MMOL/L (3.5-5.1); SODIUM LEVEL 136 MMOL/L (136-145); TOTAL PROTEIN 6.3 G/DL (5.7-8.2)
[2023-10-08 13:13] LABS: MONO # 2.2 10^3/uL (0.0-0.8)
[2023-10-08] MEDS ORDERED: ISOVUE-370 76% 100ML VIAL As Ordered ONE (13:28)
[2023-10-08 14:39] VITALS: BP 118/77; TEMP 98.1; O2SAT 84
== END 2023-10-08 15:15 | disposition left against medical advice (07) ==
LOC: M ED 11:50 → EDBD 11:50 → M ED 15:15
DX: K62.89 Other specified diseases of anus and rectum (principal); F41.9 Anxiety disorder, unspecified; K21.9 Gastro-esophageal reflux disease without esophagitis; F19.10 Other psychoactive substance abuse, uncomplicated; Z88.1 Allergy status to other antibiotic agents; Z88.5 Allergy status to narcotic agent; Z79.899 Other long term (current) drug therapy; Z53.9 Procedure and treatment not carried out, unspecified reason

== ENCOUNTER 2024-12-23 01:16 | Observation (INO) | payer MEDICAID, OTHER, SELFPAY ==
[~2024-12-23] VITALS: Ht 154.9 cm; Wt 54.5 kg
[2024-12-23 02:23] LABS: KETONE, URINE AUTO RFX TRACE mg/dL (NEGATIVE); MUCUS, URINE RFX SMALL (NEGATIVE); NITRITE, URINE AUTO RFX NEGATIVE (NEGATIVE); RBC, URINE AUTO RFX 2 /HPF (0-3); SQUAM EPITHELIAL CELL UR AURFX 3 /HPF (0-6); WBC, URINE AUTO RFX 1 /HPF (0-3)
[2024-12-23 02:24] LABS: LEUKOCYTE ESTERASE UR AUTO RFX TRACE (NEGATIVE)
[2024-12-23 02:58] LABS: HEMOGLOBIN 16.8 g/dl (12.0-15.5); MEAN CORPUSCULAR HEMOGLOBIN 31.3 pg (27.0-33.0); MEAN CORPUSCULAR HGB CONC 32.9 g/dl (32.0-36.5); MEAN CORPUSCULAR VOLUME 95.1 fl (80.0-96.0); PLATELET COUNT, AUTOMATED 413 10^3/uL (150-450); RED BLOOD COUNT 5.36 10^6/uL (4.00-5.40)
[2024-12-23 03:12] LABS: WHITE BLOOD COUNT 44.6 10^3/uL (4.0-10.0)
[2024-12-23 03:18] LABS: LIPASE 31 U/L (12-53); LYMPHOCYTES 2 % (16-44); MONOCYTES 5 % (0-5); NEUTROPHILS 89 % (28-66)
[2024-12-23 03:19] LABS: PLATELET ESTIMATE NORMAL (NORMAL)
[2024-12-23 03:20] LABS: ALKALINE PHOSPHATASE 54 U/L (35-104); ALT/SGPT 27 U/L (7.0-40); AST/SGOT 19 U/L (<34); BILIRUBIN,DIRECT 0.2 MG/DL (<0.4); BILIRUBIN,TOTAL 0.6 MG/DL (0.3-1.2); BLOOD UREA NITROGEN 24 MG/DL (9-23); CALCIUM LEVEL 9.1 MG/DL (8.5-10.1); CARBON DIOXIDE LEVEL 17 MMOL/L (20-31); CHLORIDE LEVEL 109 MMOL/L (98-107); CREATININE FOR GFR 0.65 MG/DL (0.55-1.30); GLOMERULAR FILTRATION RATE > 60.0 (>58); GLUCOSE, FASTING 95 MG/DL (60-100); POTASSIUM SERUM 4.5 MMOL/L (3.5-5.1); SODIUM LEVEL 144 MMOL/L (136-145); TOTAL PROTEIN 7.7 G/DL (5.7-8.2)
[2024-12-23] MEDS ORDERED: ISOVUE-370 76% 100ML VIAL As Ordered ONE (04:30)
[2024-12-23] MEDS: [UNRECOGNIZED DRUG - OTHER] IV ONE (05:18)
[2024-12-23] MEDS: NS 0.9% IV ONE (05:18)
[2024-12-23] MEDS: CEFEPIME HCL 1 GM in DEXTROSE 5% (D5W) ADV/MINI-BAG 50 ML IV ONE (05:32)
[2024-12-23] MEDS ORDERED: HYDR50TA70 PO (08:44)
[2024-12-23] MEDS ORDERED: HOME MED LIST COMPLETE! XX SCH (08:45)
[2024-12-23 09:33] LABS: C REACTIVE PROTEIN QUANTITATIV 1.78 MG/DL (<1.0)
[2024-12-23 09:45] LABS: PROCALCITONIN 2.56 ng/ml
[2024-12-23] MEDS: LR 1,000 ML IV SCH (11:15)
[2024-12-23] MEDS ORDERED: ACETAMINOPHEN 325 MG TAB PO PRN (13:05)
[2024-12-23 13:32] LABS: URINE PREG TEST NEGATIVE (NEGATIVE)
[2024-12-23] MEDS: metroNIDAZOLE (FLAGYL) 500MG TABLET PO SCH (13:53)
[2024-12-23 15:52] VITALS: BP 109/72; TEMP 97.1; O2SAT 100
[2024-12-23] MEDS: CEFEPIME HCL 2 GM in DEXTROSE 5% (D5W) ADV/MINI-BAG 50 ML IV SCH (18:14)
[2024-12-23 19:49] VITALS: BP 108/65; TEMP 99.1; O2SAT 99
[2024-12-24 03:47] VITALS: BP 113/72; TEMP 97.5; O2SAT 100
[2024-12-24 06:48] LABS: BASO % 0.3 % (0.0-1.0); EOS # 0.7 10^3/uL (0.0-0.5); EOS % 4.9 % (0.0-3.0); HEMATOCRIT 38.2 % (36.0-47.0); HEMOGLOBIN 12.6 g/dl (12.0-15.5); LYMPH # 3.5 10^3/uL (1.5-5.0); LYMPH % 25.5 % (24.0-44.0); MEAN CORPUSCULAR HEMOGLOBIN 31.3 pg (27.0-33.0); MEAN CORPUSCULAR VOLUME 94.8 fl (80.0-96.0); MONO # 0.7 10^3/uL (0.0-0.8); MONO % 4.9 % (2.0-8.0); NEUTROPHILS # 8.8 10^3/uL (1.5-8.5); PLATELET COUNT, AUTOMATED 312 10^3/uL (150-450); RED BLOOD COUNT 4.03 10^6/uL (4.00-5.40); WHITE BLOOD COUNT 13.7 10^3/uL (4.0-10.0)
[2024-12-24 07:18] LABS: BLOOD UREA NITROGEN 8 MG/DL (9-23); C REACTIVE PROTEIN QUANTITATIV 3.09 MG/DL (<1.0); CALCIUM LEVEL 8.3 MG/DL (8.5-10.1); CARBON DIOXIDE LEVEL 26 MMOL/L (20-31); CHLORIDE LEVEL 109 MMOL/L (98-107); GLOMERULAR FILTRATION RATE > 60.0 (>58); GLUCOSE, FASTING 107 MG/DL (60-100); POTASSIUM SERUM 4.4 MMOL/L (3.5-5.1); SODIUM LEVEL 143 MMOL/L (136-145)
[2024-12-24] MEDS ORDERED: METR-265 PO (08:41)
[2024-12-24] MEDS ORDERED: CIPR500T39 PO (08:41)
[2024-12-24] MEDS: ENOXAPARIN 30MG/0.3ML SYRINGE (J1650 PER 10MG) SC SCH (09:00)
[2024-12-24] MEDS: hydrOXYzine 50 MG TAB PO SCH (09:09)
== END 2024-12-24 11:23 | disposition home or self-care (01) ==
LOC: EDBD 01:16 → M ED 01:16 → M ED INP 01:17 → M MS4PR 15:52
PROVIDERS: ADMIT Internal Medicine; ATTEND Internal Medicine
DX: K52.9 Noninfective gastroenteritis and colitis, unspecified (principal); R10.9 Unspecified abdominal pain; E87.21 Acute metabolic acidosis; E86.0 Dehydration; F41.9 Anxiety disorder, unspecified; F31.9 Bipolar disorder, unspecified; F90.9 Attention-deficit hyperactivity disorder, unspecified type; Z79.2 Long term (current) use of antibiotics; Z79.899 Other long term (current) drug therapy
CPT/HCPCS: 36415; 71045; 74177; 80048; 80076; 81001; 83605; 83690; 84145; 84703; 85025; 86140; 87040; 87086; 87486; 87507; 87581; 87633; 87798; 96361; 96365; 96366; 96375; 99285; J0692; Q9967

== ENCOUNTER → 2025-06-18 | Outpatient (RCR) ==
[~2025-06-18] MED LIST changes: +CIPR500T39 PO; +HYDR50TA70 PO; +METR-265 PO; +PROZ10CA11 PO; -PROZ10CA7 PO
== END ==
LOC: M EMPSKH 05-17 12:53
PROVIDERS: ATTEND Family Medicine
DX: Z20.828 Contact with and (suspected) exposure to other viral communicable diseases (principal)